=== PATIENT | male | born 1985 ===

== ENCOUNTER 2020-01-27 17:31 | Inpatient (IN) | payer OTHER ==
[~2020-01-27] VITALS: Ht 180.3 cm; Wt 84.2 kg
[2020-01-27] MEDS: HEPARIN 5,000 UNITS/ML, 1ML SQ SCH (19:00)
[2020-01-27] MEDS ORDERED: ONDANSETRON ODT 4 MG PO PRN (19:00)
[2020-01-27] MEDS: SODIUM CHLORIDE 0.9% 1,000 ML IV SCH (19:00)
[2020-01-27] MEDS ORDERED: SODIUM CHLORIDE 0.9% 1,000 ML IV ONE (19:00)
[2020-01-27] MEDS ORDERED: SODIUM CHLORIDE FLUSH 10ML SYR IVF PRN (19:00)
--- NOTE | 2020-01-27 19:00 | NUR ---
Report received from GABBIE Wyatt. This RN to assume care. Awaiting bed placement. Changed tegaderm on patient's IV.
[2020-01-27] MEDS: ALBUTEROL HFA 90 MCG/SPRAY INH SCH (21:00)
--- NOTE | 2020-01-27 22:17 | NUR ---
Provided blankets to patient. Patient still feeling SOB. Patient is speaking in full sentences. He is diaphoretic and afebrile. No other complaints. Patient states he has been sweating on and off for days.
--- NOTE | 2020-01-28 | NUR ---
Patient sleeping in gurney. Respirations even and unlabored.
[2020-01-28] MEDS: HEPARIN 5,000 UNITS/ML, 1ML SQ SCH ×3 (03:00→21:27)
--- NOTE | 2020-01-28 03:00 | NUR ---
Patient transferred to a hospital bed. Patient having an acute coughing fit due to the movement. Will provide cough meds per may.
[2020-01-28] MEDS ORDERED: GUAIFENESIN/DM 200-20MG, 10ML UDC ONE (03:04)
[2020-01-28] MEDS: GUAIFENESIN/DM 200-20MG, 10ML UDC PO PRN (03:32)
[2020-01-28] MEDS ORDERED: HEPARIN 5,000 UNITS/ML, 1ML ONE (03:43)
[2020-01-28 05:06] LABS: BASOPHILS % (AUTO) 0 % (0-1); EOSINOPHILS % (AUTO) 0 % (1-7); LYMPHOCYTES % (AUTO) 7 % (22-44); MEAN CORPUSCULAR HEMOGLOBIN 29.6 pg (27.5-34.5); MEAN CORPUSCULAR HGB CONC 33.7 g/dL (33.2-36.2); MEAN PLATELET VOLUME 7.7 fL (7.4-10.4); MONOCYTES % (AUTO) 3 % (2-9); NEUTROPHILS % (AUTO) 91 % (42-75); PLATELET COUNT 224 x10^3/uL (130-400); RED BLOOD COUNT 4.46 x10^6/uL (4.38-5.82); RED CELL DISTRIBUTION WIDTH 12.8 % (9.4-14.8)
[2020-01-28 05:17] LABS: ANION GAP 3 mmol/L (5-15); CALCIUM 8.3 mg/dL (8.5-10.1); CHLORIDE 112 mmol/L (98-107); CREATININE 0.84 mg/dL (0.7-1.3)
[2020-01-28 05:42] LABS: MD SCAN
[2020-01-28] MEDS: ALBUTEROL HFA 90 MCG/SPRAY INH SCH ×4 (05:51→22:50)
[2020-01-28] MEDS: SODIUM CHLORIDE 0.9% 1,000 ML IV SCH ×2 (05:52→13:13)
--- NOTE | 2020-01-28 06:01 | NUR ---
Patient states he went [facility] due to vomiting, diarrhea, fever/chills. He was dx with pna and treated for it. SOB started afterward and became worse. Admin morning meds per may. Patient states, "this is the most I've slept in two days." Patient c/o chest pressure and sharp pain when breathing in. Patient is in NAD. Respirations even and unlabored.
[2020-01-28] MEDS ORDERED: CEFTRIAXONE PMX 1GM/50ML 50 ML ONE (08:12)
[2020-01-28] MEDS ORDERED: DEXAMETHASONE 4 MG/ML, 1ML ONE (08:12)
[2020-01-28] MEDS: DEXAMETHASONE 4 MG/ML, 1ML IVPush SCH ×3 (09:00→21:28)
[2020-01-28] MEDS ORDERED: CEFTRIAXONE PMX 1GM/50ML 50 ML IV SCH (09:00)
[2020-01-28] MEDS ORDERED: DEXAMETHASONE 4 MG/ML, 1ML IVPush SCH (09:00)
[2020-01-28] MEDS ORDERED: AZITHROMYCIN 500 MG in SODIUM CHLORIDE 0.9% 250 ML IV SCH (09:00)
[2020-01-28 09:13] LABS: BILIRUBIN, DIRECT 0.2 mg/dL (0.1-0.2)
[2020-01-28 09:19] LABS: BILIRUBIN,INDIRECT 0.9 mg/dL (0.0-2.0); BILIRUBIN,TOTAL 1.1 mg/dL (0.2-1.0); TOTAL PROTEIN 6.6 g/dL (6.4-8.2)
[2020-01-28 09:30] VITALS: BP 134/72
[2020-01-28] MEDS ORDERED: PROMETHAZINE/COD. 10MG/6.25MG/5 ML ORAL SOL PO PRN (11:00)
[2020-01-28] MEDS: DOXYCYCLINE 100 MG in DEXTROSE 5% 250 ML IV SCH ×2 (11:00→21:28)
[2020-01-28] MEDS ORDERED: CEFTRIAXONE PMX 2GM/50ML 50 ML IVPB SCH (11:00)
[2020-01-28] MEDS ORDERED: CEFTRIAXONE PMX 1GM/50ML 50 ML IV ONE (13:00)
[2020-01-28 13:08] VITALS: BP 115/76
[2020-01-28] MEDS ORDERED: MORPHINE SULFATE 4 MG/ML, 1ML IVPush PRN (14:00)
[2020-01-28] MEDS ORDERED: REMDESIVIR 200 MG in SODIUM CHLORIDE 0.9% 250 ML IVPB ONE (15:30)
[2020-01-28 15:35] LABS: TROPONIN I < 0.015 ng/mL (0.000-0.045)
[2020-01-28] MEDS ORDERED: FENTANYL PF 100 MCG/2ML IVPush PRN (17:30)
[2020-01-28 20:54] LABS: TROPONIN I < 0.015 ng/mL (0.000-0.045)
[2020-01-28 21:39] VITALS: BP 118/75
[2020-01-29] MEDS: SODIUM CHLORIDE 0.9% 1,000 ML IV SCH ×3 (01:08→21:46)
[2020-01-29 01:11] VITALS: BP 115/76
[2020-01-29 04:41] LABS: INTERNATIONAL NORMALIZED RATIO 1.02 (0.93-1.1); PROTHROMBIN TIME 10.8 Seconds (9.6-11.5)
[2020-01-29 04:42] LABS: CHLORIDE 110 mmol/L (98-107)
[2020-01-29 04:48] LABS: ALANINE AMINOTRANSFERASE 67 U/L (12-78); ALBUMIN 2.6 g/dL (3.4-5.0); ALKALINE PHOSPHATASE 74 U/L (45-117); ANION GAP 4 mmol/L (5-15); BILIRUBIN,TOTAL 0.5 mg/dL (0.2-1.0); CREATININE 0.69 mg/dL (0.7-1.3); TOTAL PROTEIN 6.1 g/dL (6.4-8.2)
[2020-01-29] MEDS: HEPARIN 5,000 UNITS/ML, 1ML SQ SCH ×3 (04:50→21:47)
[2020-01-29] MEDS: ACETAMINOPHEN 325 MG TABLET PO PRN ×2 (04:54→22:56)
[2020-01-29 08:00] VITALS: BP 120/70
[2020-01-29] MEDS: ALBUTEROL HFA 90 MCG/SPRAY INH SCH ×4 (09:10→21:00)
[2020-01-29] MEDS: CEFTRIAXONE PMX 2GM/50ML 50 ML IVPB SCH (09:10)
[2020-01-29] MEDS: DEXAMETHASONE 4 MG/ML, 1ML IVPush SCH ×3 (09:11→21:46)
[2020-01-29] MEDS: GUAIFENESIN/DM 200-20MG, 10ML UDC PO PRN ×2 (11:44→21:46)
[2020-01-29] MEDS: DOXYCYCLINE 100 MG in DEXTROSE 5% 250 ML IV SCH ×2 (11:44→22:56)
[2020-01-29 15:06] VITALS: BP 116/72
[2020-01-29] MEDS: REMDESIVIR 100 MG in SODIUM CHLORIDE 0.9% 250 ML IVPB SCH (17:30)
[2020-01-29 21:44] VITALS: BP 93/46
[2020-01-30 00:58] VITALS: BP 118/79
[2020-01-30 04:58] LABS: CHLORIDE 111 mmol/L (98-107)
[2020-01-30] MEDS: ACETAMINOPHEN 325 MG TABLET PO PRN (04:58)
[2020-01-30] MEDS: HEPARIN 5,000 UNITS/ML, 1ML SQ SCH ×3 (04:58→22:19)
[2020-01-30] MEDS: GUAIFENESIN/DM 200-20MG, 10ML UDC PO PRN ×2 (04:58→22:36)
[2020-01-30] MEDS: ALBUTEROL HFA 90 MCG/SPRAY INH SCH ×4 (04:58→19:33)
[2020-01-30 05:10] LABS: ALANINE AMINOTRANSFERASE 70 U/L (12-78); ALBUMIN 2.7 g/dL (3.4-5.0); ALKALINE PHOSPHATASE 71 U/L (45-117); ANION GAP 7 mmol/L (5-15); BILIRUBIN,TOTAL 0.4 mg/dL (0.2-1.0); CALCIUM 8.5 mg/dL (8.5-10.1); CREATININE 0.68 mg/dL (0.7-1.3); TOTAL PROTEIN 6.1 g/dL (6.4-8.2)
[2020-01-30 05:27] LABS: BASOPHILS % (AUTO) 0 % (0-1); EOSINOPHILS % (AUTO) 0 % (1-7); LYMPHOCYTES % (AUTO) 7 % (22-44); MEAN CORPUSCULAR HEMOGLOBIN 29.3 pg (27.5-34.5); MEAN CORPUSCULAR HGB CONC 33.7 g/dL (33.2-36.2); MEAN PLATELET VOLUME 8.5 fL (7.4-10.4); MONOCYTES % (AUTO) 3 % (2-9); NEUTROPHILS % (AUTO) 89 % (42-75); PLATELET COUNT 287 x10^3/uL (130-400); RED BLOOD COUNT 4.28 x10^6/uL (4.38-5.82); RED CELL DISTRIBUTION WIDTH 12.8 % (9.4-14.8)
[2020-01-30 06:20] LABS: MD SCAN
[2020-01-30] MEDS: CEFTRIAXONE PMX 2GM/50ML 50 ML IVPB SCH (09:37)
[2020-01-30] MEDS: DEXAMETHASONE 4 MG/ML, 1ML IVPush SCH ×3 (09:37→22:19)
[2020-01-30 09:43] VITALS: BP 124/80
[2020-01-30] MEDS: SODIUM CHLORIDE 0.9% 1,000 ML IV SCH ×2 (09:53→22:18)
[2020-01-30] MEDS: DOXYCYCLINE 100 MG in DEXTROSE 5% 250 ML IV SCH ×2 (12:16→22:18)
[2020-01-30 14:08] VITALS: BP 122/70
[2020-01-30] MEDS: REMDESIVIR 100 MG in SODIUM CHLORIDE 0.9% 250 ML IVPB SCH (16:20)
[2020-01-31 03:00] VITALS: BP 105/67
[2020-01-31 04:31] LABS: ALANINE AMINOTRANSFERASE 64 U/L (12-78); ALBUMIN 2.7 g/dL (3.4-5.0); ANION GAP 7 mmol/L (5-15); CALCIUM 8.1 mg/dL (8.5-10.1); CHLORIDE 110 mmol/L (98-107); CREATININE 0.75 mg/dL (0.7-1.3)
[2020-01-31 04:33] LABS: ALKALINE PHOSPHATASE 66 U/L (45-117); BILIRUBIN,TOTAL 0.5 mg/dL (0.2-1.0); TOTAL PROTEIN 5.8 g/dL (6.4-8.2)
[2020-01-31] MEDS: HEPARIN 5,000 UNITS/ML, 1ML SQ SCH ×3 (05:45→20:49)
[2020-01-31] MEDS: ALBUTEROL HFA 90 MCG/SPRAY INH SCH ×4 (08:35→19:33)
[2020-01-31 09:10] VITALS: BP 124/77
[2020-01-31] MEDS: CEFTRIAXONE PMX 2GM/50ML 50 ML IVPB SCH (09:13)
[2020-01-31] MEDS: SODIUM CHLORIDE 0.9% 1,000 ML IV SCH ×2 (09:13→20:00)
[2020-01-31] MEDS: DEXAMETHASONE 4 MG/ML, 1ML IVPush SCH ×3 (09:14→20:49)
[2020-01-31] MEDS: DOXYCYCLINE 100 MG in DEXTROSE 5% 250 ML IV SCH ×2 (11:00→22:35)
[2020-01-31 12:34] VITALS: BP 136/70
[2020-01-31] MEDS: ACETAMINOPHEN 325 MG TABLET PO PRN ×2 (17:46→22:35)
[2020-01-31] MEDS: REMDESIVIR 100 MG in SODIUM CHLORIDE 0.9% 250 ML IVPB SCH (17:46)
[2020-01-31 19:30] VITALS: BP 119/76
[2020-02-01 00:12] VITALS: BP 123/75
[2020-02-01 03:06] VITALS: BP 119/75
[2020-02-01 04:56] LABS: ALBUMIN 2.7 g/dL (3.4-5.0); CHLORIDE 110 mmol/L (98-107)
[2020-02-01 05:01] LABS: ALANINE AMINOTRANSFERASE 68 U/L (12-78); ALKALINE PHOSPHATASE 64 U/L (45-117); ANION GAP 7 mmol/L (5-15); BILIRUBIN,TOTAL 0.5 mg/dL (0.2-1.0); CREATININE 0.69 mg/dL (0.7-1.3); TOTAL PROTEIN 5.8 g/dL (6.4-8.2)
[2020-02-01] MEDS: HEPARIN 5,000 UNITS/ML, 1ML SQ SCH ×3 (05:01→19:29)
[2020-02-01] MEDS: SODIUM CHLORIDE 0.9% 1,000 ML IV SCH ×2 (05:02→16:00)
[2020-02-01 05:08] VITALS: BP 125/83
[2020-02-01 05:40] LABS: TROPONIN I < 0.015 ng/mL (0.000-0.045)
[2020-02-01] MEDS: ALBUTEROL HFA 90 MCG/SPRAY INH SCH ×4 (06:00→19:19)
[2020-02-01] MEDS: DEXAMETHASONE 4 MG/ML, 1ML IVPush SCH ×3 (08:49→19:29)
[2020-02-01] MEDS: ACETAMINOPHEN 325 MG TABLET PO PRN (08:49)
[2020-02-01] MEDS: GUAIFENESIN/DM 200-20MG, 10ML UDC PO PRN ×2 (08:50→13:15)
[2020-02-01 08:51] VITALS: BP 123/77
[2020-02-01] MEDS: CEFTRIAXONE PMX 2GM/50ML 50 ML IVPB SCH (09:41)
[2020-02-01] MEDS ORDERED: CODE10LI PO (11:38)
[2020-02-01] MEDS ORDERED: DEXA4TAB66 PO (11:38)
[2020-02-01] MEDS ORDERED: DOXY100C2 PO (11:38)
[2020-02-01] MEDS ORDERED: CEFD300C37 PO (11:38)
[2020-02-01] MEDS ORDERED: ASCO100018 PO (11:38)
[2020-02-01] MEDS: DOXYCYCLINE 100 MG in DEXTROSE 5% 250 ML IV SCH (11:42)
[2020-02-01] MEDS: REMDESIVIR 100 MG in SODIUM CHLORIDE 0.9% 250 ML IVPB SCH (14:52)
[2020-02-01 14:58] VITALS: BP 148/70
[2020-02-01 19:33] VITALS: BP 148/70
== END 2020-02-01 20:43 | disposition home or self-care (01) | DRG 177 ==
LOC: ED 18:55 → EDIP 20:08 → ICU 01-28 12:46
PROVIDERS: ADMIT Internal Medicine; ATTEND Internal Medicine
PROC: XW033E5 Introduction of Remdesivir Anti-infective into Peripheral Vein, Percutaneous Approach, New Technology Group 5 (ICD-10-PCS; principal; 2020-01-28)
DX: U07.1 COVID-19 (principal); J12.89 Other viral pneumonia; J96.01 Acute respiratory failure with hypoxia; K52.9 Noninfective gastroenteritis and colitis, unspecified; Z79.899 Other long term (current) drug therapy
CPT/HCPCS: 36415; 71250; 80048; 80053; 80076; 83036; 83615; 84484; 85025; 85379; 85610; 86140; 87081; 93005; 94640; 96374; 96375; 99285; G0378; J0456; J0696; J1100; J1644; J3010; J7060; Q0162; J2270; J7030; J7050